=== PATIENT | female | born 1950 | race Asian ===

== ENCOUNTER 2016-09-26 12:15 | Outpatient (CLI) | payer OTHER ==
--- NOTE | 2016-09-26 13:26 | Cat Scan Report ---
CT CHEST WITHOUT CONTRAST: HISTORY: Hypoxemia, shortness of breath. TECHNIQUE: Helical CT with sagittal and coronal reformatted images. FINDINGS: Heart size is normal. There is no evidence of adenopathy within the mediastinum. Pulmonary jairo are free of any mass and the lungs are clear of infiltrates. No interstitial or airspace lung disease is appreciated. The pleura is unremarkable. No masses involve the chest wall. IMPRESSION: Unremarkable noncontrast CT chest.
[2016-09-26 14:12] LABS: Hematocrit 40.7 % (30.3-42.9); Hemoglobin 13.2 gm/dl (10.1-14.3); Mean Corpuscular HGB Conc 33 % (30-34); Mean Corpuscular Volume 79 fl (79-97); Platelet Count 185 K/mm3 (140-440); Red Blood Count 5.18 M/mm3 (3.65-5.03); Red Cell Distribution Width 14.8 % (13.2-15.2)
[2016-09-26 14:17] LABS: Mean Corpuscular Hemoglobin 26 pg (28-32)
[2016-09-26 14:30] LABS: Alanine Aminotransferase 22 units/L (7-56); Albumin 3.5 g/dL (3.9-5); Albumin/Globulin Ratio 1.1 %; Alkaline Phosphatase 80 units/L (35-129); Anion Gap 17 mmol/L; BUN/Creatinine Ratio 27.14; Blood Urea Nitrogen 19 mg/dL (7-17); Calcium 9.1 mg/dL (8.4-10.2); Carbon Dioxide 27 mmol/L (22-30); Chloride 97.2 mmol/L (98-107); Cholesterol 240 mg/dL (50-199); Glucose 97 mg/dL (65-100); HDL Cholesterol 60 mg/dL (40-59); LDL Cholesterol,Direct 134 mg/dL (50-130); Potassium 4.4 mmol/L (3.6-5.0); Sodium 137 mmol/L (137-145); Total Protein 6.7 g/dL (6.3-8.2); Triglycerides 231 mg/dL (2-149)
[2016-09-26 14:31] LABS: Erythrocyte Sedimentation Rate 14 mm/Hr (0-20)
[2016-09-28 15:27] LABS: Vitamin D, 25-OH, Total 20 ng/mL (30-100)
== END 2016-09-26 12:16 | disposition home or self-care (01) ==
LOC: CT 12:15
PROVIDERS: ATTEND Internal Medicine
DX: I10 Essential (primary) hypertension (principal); R06.02 Shortness of breath; E55.9 Vitamin D deficiency, unspecified; R09.02 Hypoxemia; R30.0 Dysuria; M25.50 Pain in unspecified joint
CPT/HCPCS: 36415; 71250; 80053; 80061; 82306; 83036; 84439; 84443; 85027; 85652; 86038; 86618

== ENCOUNTER 2017-05-01 11:25 | Outpatient (CLI) | payer OTHER ==
--- NOTE | 2017-05-02 14:37 | Mammography Report ---
BILATERAL DIGITAL SCREENING MAMMOGRAM with CAD: 05/01/17 11:25:00 CLINICAL: Routine screening. COMPARISON:11/06/14 FINDINGS: The breasts are heterogeneously dense, which may obscure small masses. A right retroareolar asymmetry on the MLO view requires additional imaging.No architectural distortion or suspicious calcifications.The left breast is negative. IMPRESSION: Right asymmetry requiring further workup. BI-RADS CATEGORY: 0 -- Additional Imaging Evaluation Required RECOMMENDATION: Recall for right true lateral and spot magnification MLO views and right breast ultrasound if needed. ACR BI-RADS MAMMOGRAPHIC CODES: 0 = Needs additional imaging evaluation; 1 = Negative; 2 = Benign; 3 = Probably benign; 4 = Suspicious; 5 = Malignant; 6 = Known biopsy-proven malignancy COMMENT: 1. Dense breast tissue, i.e., adenosis, fibrocystic changes, etc., may obscure an underlying neoplasm. 2. Approximately 10% of cancers are not detected with mammography. 3. A negative mammography report should not delay biopsy if a clinically suspicious mass is present. COMMENT: Patient follow-up letters are generated via our [employer] application.
== END 2017-05-01 11:26 | disposition home or self-care (01) ==
LOC: SPVWC 11:25
PROVIDERS: ATTEND Internal Medicine
DX: Z12.31 Encounter for screening mammogram for malignant neoplasm of breast (principal)
CPT/HCPCS: 77067

== ENCOUNTER 2017-05-03 14:04 | Outpatient (CLI) | payer OTHER ==
--- NOTE | 2017-05-03 14:35 | Mammography Report ---
RIGHT DIGITAL DIAGNOSTIC MAMMOGRAM : 05/03/17 14:04:00 CLINICAL: Recalled for asymmetry. COMPARISON:05/01/17 screening FINDINGS: Additional mammographic views were performed and are negative. IMPRESSION: Negative Mammogram. BI-RADS CATEGORY: 1 -- Negative RECOMMENDATION: Routine mammographic screening in one year. ACR BI-RADS MAMMOGRAPHIC CODES: 0 = Needs additional imaging evaluation; 1 = Negative; 2 = Benign; 3 = Probably benign; 4 = Suspicious; 5 = Malignant; 6 = Known biopsy-proven malignancy COMMENT: 1. Dense breast tissue, i.e., adenosis, fibrocystic changes, etc., may obscure an underlying neoplasm. 2. Approximately 10% of cancers are not detected with mammography. 3. A negative mammography report should not delay biopsy if a clinically suspicious mass is present. COMMENT: Patient follow-up letters are generated via our [employer] application.
== END 2017-05-03 14:05 | disposition home or self-care (01) ==
LOC: MAMMO 14:04
PROVIDERS: ATTEND Internal Medicine
DX: R92.8 Other abnormal and inconclusive findings on diagnostic imaging of breast (principal)